=== PATIENT | male | born 1955 | race Caucasian/White ===

== ENCOUNTER 2017-05-01 07:57 | Day surgery (SDC) | payer OTHER ==
[~2017-05-01] VITALS: Ht 182.9 cm; Wt 127.0 kg
[2017-05-01 08:27] VITALS: BP 150/94
[2017-05-01 14:58] VITALS: BP 138/67
== END 2017-05-01 14:55 | disposition home or self-care (01) ==
LOC: DS 07:57
PROVIDERS: Neuromusculoskeletal Medicine, Sports Medicine
PROC: 0RBT0ZZ Excision of Left Carpometacarpal Joint, Open Approach (ICD-10-PCS; 2017-05-01)
PROC: 01N40ZZ Release Ulnar Nerve, Open Approach (ICD-10-PCS; 2017-05-01)
PROC: 01N50ZZ Release Median Nerve, Open Approach (ICD-10-PCS; principal; 2017-05-01 09:00)
DX: G56.02 Carpal tunnel syndrome, left upper limb (principal); M65.9 Synovitis and tenosynovitis, unspecified; G56.22 Lesion of ulnar nerve, left upper limb; E11.65 Type 2 diabetes mellitus with hyperglycemia; E66.3 Overweight
CPT/HCPCS: 82962; J0690; J1170; J1815; J2405; J2704; J3010; J3490; J7120